=== PATIENT | female | born 1990 | race Caucasian/White ===

== ENCOUNTER 2019-03-12 10:16 | Inpatient (IN) ==
[2019-03-12] MEDS ORDERED: ONDANSETRON 4 MG/2 ML VIAL IV PRN ×2 (10:25→17:09)
[2019-03-12] MEDS ORDERED: LACTATED RINGERS 1,000 ML IV PRN (10:25)
[2019-03-12] MEDS ORDERED: BUTORPHANOL 2 MG/ML VIAL IV PRN (10:25)
[2019-03-12] MEDS ORDERED: ePHEDrine 50 MG/ML AMP IV PRN (10:27)
[2019-03-12] MEDS ORDERED: CITRIC ACID/SODIUM CITRATE 30 ML UDCUP PO ONE (10:27)
[2019-03-12] MEDS ORDERED: ONDANSETRON 4 MG/2 ML VIAL IV ONE (10:27)
[2019-03-12] MEDS ORDERED: PROMETHAZINE 25 MG/1 ML VIAL IM ONE (10:27)
[2019-03-12] MEDS ORDERED: hydrOXYzine HCL 25 MG/1 ML VIAL IM PRN (10:27)
[2019-03-12] MEDS ORDERED: NALOXONE 0.4 MG/ML VIAL IV PRN (10:27)
[2019-03-12] MEDS ORDERED: diphenhydrAMINE 50 MG/1 ML VIAL IV PRN ×2 (10:27)
[2019-03-12] MEDS ORDERED: FAMOTIDINE 20 MG/2 ML VIAL IV SCH (10:30)
[2019-03-12] MEDS ORDERED: LACTATED RINGERS 1,000 ML IV SCH ×2 (10:30→14:30)
[2019-03-12] MEDS ORDERED: OXYTOCIN/LR 20 UNIT/1,000 ML BAG IV SCH (10:30)
[2019-03-12] MEDS ORDERED: fentaNYL 2 MCG/ROPIV 0.2% EPID 100 ML EPIDURAL SCH (10:30)
[2019-03-12 10:48] LABS: Basophils % 0.2 % (0.0-0.8); Eosinophils # 0.1 10*3/uL (0.0-0.87); Hematocrit 32.9 VOL% (35.7-47.0); Hemoglobin 10.4 GM/DL (12.0-16.0); Immature Granulocytes % 0.5 %; Immature Granulocytes Absolute 0.06 #; Lymphocytes % 25.1 % (21.3-54.2); Mean Corpuscular HGB Conc 31.6 GM/DL (32-36); Mean Corpuscular Volume 80.8 FL (87-102); Mean Platelet Volume 12.6 FL (9.6-12.0); Neutrophils % 66.2 % (38.7-73.9); Platelet Count 364 T/CUMM (130-400); Red Blood Count 4.07 MC/CUMM (3.8-5.5); Red Cell Distribution Width 15.3 % (9.3-17.3); White Blood Count 12.1 T/CUMM (4-12)
[2019-03-12 10:58] LABS: Partial Thromboplastin Time 25.2 SECS (0-40)
[2019-03-12] MEDS ORDERED: CLINDAMYCIN INJ 900 MG in PREMIX 1 EACH IV SCH (11:00)
[2019-03-12 11:12] LABS: Alanine Aminotransferase 21 U/L (13-56); Albumin 2.2 G/DL (3.4-5.0); Alkaline Phosphatase 209 U/L (45-117); Aspartate Amino Transferase 18 U/L (0-37); Bilirubin,Total < 0.39 MG/DL (0.2-1.0); Blood Urea Nitrogen 9 MG/DL (7-18); Calcium 9.1 MG/DL (8.5-10.1); Glucose 106 MG/DL (74-106); Osmolality,Calculated 275.5 MOS/KG (273-304); Total Protein 6.8 G/DL (6.4-8.3); Uric Acid 4.4 MG/DL (2.6-6.0)
[2019-03-12] MEDS ORDERED: BISACODYL 10 MG SUPP RECTAL PRN (17:09)
[2019-03-12] MEDS ORDERED: oxyCODONE/ACETAMINOPHEN 5-325 MG TABLET PO PRN (17:09)
[2019-03-12] MEDS ORDERED: RHO(D) IMMUNE GLOBULIN 300 MCG SYRINGE IM ONE (17:09)
[2019-03-12] MEDS ORDERED: OXYTOCIN/LR 20 UNIT/1,000 ML BAG IV ONE (17:09)
[2019-03-12] MEDS ORDERED: LANOLIN 50% CREAM 0.3 OZ TUBE TOP PRN (17:09)
[2019-03-12] MEDS ORDERED: WITCH HAZEL PADS 100/JAR TOP PRN (17:09)
[2019-03-12] MEDS ORDERED: BENZOCAINE 20%/MENTHOL 0.5% SPRAY 56 GM CAN TOP PRN (17:09)
[2019-03-12] MEDS ORDERED: ACETAMINOPHEN 325 MG TABLET PO PRN (17:09)
[2019-03-12] MEDS ORDERED: HYDROCORTISONE 2.5% RECTAL CREAM 30 GM TUBE TOP PRN (17:09)
[2019-03-12] MEDS ORDERED: DIPH/TET/ACEL PERT BOOSTER VACCINE 0.5 ML VIAL IM ONE (17:09)
[2019-03-12] MEDS ORDERED: MEASLES/MUMPS/RUBELLA VACCINE 0.5 ML VIAL SUBCUT ONE (17:09)
[2019-03-12 17:45] LABS: Apearance,Urine Slightly Hazy (Clear); Bacteria,Urine Occasional /HPF (Few); Bilirubin,Urine Negative (Negative); Blood, Urine Negative (Negative); Glucose,Urine (UA) Negative (Negative); Ketones,Urine Negative (Negative); Mucus,Urine Many /LPF (Occasional); Nitrite,Urine Negative (Negative); Protein,Urine 30 MG/DL; RBC,Urine 1 /HPF (0-4); Squamous Epithelial Cell,Urine Occasional /HPF (0-10); Urine Color Yellow (Yellow); Urine Specific Gravity 1.027 (1.001-1.035); Urine Urobilinogen < 2.0 EU/DL (0.2-1.0); WBC,Urine 1 /HPF (0-6)
[2019-03-12] MEDS: IBUPROFEN 800 MG TABLET PO PRN (21:00)
[2019-03-12] MEDS: LABETALOL 200 MG TABLET PO SCH (21:50)
[2019-03-12] MEDS: DOCUSATE SODIUM 100 MG CAPSULE PO SCH (22:49)
[2019-03-12] MEDS: oxyCODONE/ACETAMINOPHEN 5-325 MG TABLET PO PRN (22:50)
[2019-03-13] MEDS: IBUPROFEN 800 MG TABLET PO PRN (02:50)
[2019-03-13 05:44] LABS: Basophils # 0.1 10*3/uL (0.0-0.2); Basophils % 0.4 % (0.0-0.8); Eosinophils # 0.1 10*3/uL (0.0-0.87); Eosinophils % 0.9 % (0.00-10.9); Hematocrit 27.3 VOL% (35.7-47.0); Hemoglobin 8.6 GM/DL (12.0-16.0); Immature Granulocytes % 0.3 %; Immature Granulocytes Absolute 0.04 #; Lymphocytes # 3.8 10*3/uL (1.4-4.0); Lymphocytes % 29.7 % (21.3-54.2); Mean Corpuscular HGB Conc 31.5 GM/DL (32-36); Mean Corpuscular Volume 81.3 FL (87-102); Mean Platelet Volume 13.1 FL (9.6-12.0); Monocytes % 8.1 % (1.7-12.7); Neutrophils % 60.6 % (38.7-73.9); Platelet Count 267 T/CUMM (130-400); Red Blood Count 3.36 MC/CUMM (3.8-5.5); Red Cell Distribution Width 15.4 % (9.3-17.3); White Blood Count 12.9 T/CUMM (4-12)
[2019-03-13] MEDS ORDERED: FUROSEMIDE 40 MG/4 ML VIAL IV ONE (09:07)
[2019-03-13] MEDS: FERROUS SULFATE 325 MG TABLET PO SCH ×2 (09:15→21:17)
[2019-03-13] MEDS: LABETALOL 200 MG TABLET PO SCH ×2 (09:17→21:23)
[2019-03-13] MEDS: DOCUSATE SODIUM 100 MG CAPSULE PO SCH ×2 (09:17→21:16)
[2019-03-13] MEDS ORDERED: DULoxetine 30 MG CAPSULE PO SCH (21:00)
[2019-03-13] MEDS: oxyCODONE/ACETAMINOPHEN 5-325 MG TABLET PO PRN (21:17)
[2019-03-14] MEDS: IBUPROFEN 800 MG TABLET PO PRN (00:19)
[2019-03-14] MEDS: oxyCODONE/ACETAMINOPHEN 5-325 MG TABLET PO PRN (05:55)
[2019-03-14] MEDS: DOCUSATE SODIUM 100 MG CAPSULE PO SCH (09:35)
[2019-03-14] MEDS: LABETALOL 200 MG TABLET PO SCH (09:35)
[2019-03-14] MEDS: FERROUS SULFATE 325 MG TABLET PO SCH (09:35)
[2019-03-14 12:03] VITALS: BP 127/68
== END 2019-03-14 15:00 | disposition home or self-care (01) | DRG 806 ==
LOC: N.LDOUT 10:16 → N.LD 10:20 → N.OB 22:20
PROVIDERS: ADMIT Obstetrics & Gynecology; ATTEND Obstetrics & Gynecology